=== PATIENT | female | born 1960 | race Caucasian/White ===

== ENCOUNTER 2021-12-28 08:52 | Emergency (ER) | payer OTHER ==
[~2021-12-28] VITALS: Ht 154.9 cm; Wt 95.0 kg
[2021-12-28 08:55] VITALS: BP 148/94
--- NOTE | 2021-12-28 09:07 | NUR ---
EKG AT TRIAGE ROOM.
--- NOTE | 2021-12-28 09:45 | NUR ---
CALLED PT. PT STATED SHE IS AT HOME. SHE WILL COME BACK.
--- NOTE | 2021-12-28 09:45 | NUR ---
PATIENT LEFT WITHOUT BEING SEEN BY DR. BAKER. NO FURTHER CARE PROVIDED FOR PATIENT.
== END 2021-12-28 09:45 | disposition left against medical advice (07) ==
LOC: MED 08:52
DX: R00.0 Tachycardia, unspecified (principal); Z53.21 Procedure and treatment not carried out due to patient leaving prior to being seen by health care provider
CPT/HCPCS: 71045; 93005

== ENCOUNTER 2021-12-28 10:18 | Inpatient (IN) | payer OTHER ==
[~2021-12-28] VITALS: Ht 154.9 cm; Wt 70.3 kg
[2021-12-28 10:26] VITALS: BP 140/96
--- NOTE | 2021-12-28 10:30 | NUR ---
PT ATTEMPTED TO URINATE, NO URINE NOTED
--- NOTE | 2021-12-28 10:33 | NUR ---
PT AMB TO BED 8.
--- NOTE | 2021-12-28 10:43 | NUR ---
DR BAKER AT BEDSIDE EVALUATING PT
[2021-12-28] MEDS ORDERED: DILTIAZEM 25 MG/5 ML VIAL IVP ONE ×3 (10:50→12:20)
--- NOTE | 2021-12-28 11:00 | NUR ---
61 Y/O FEMALE BIB SELF C/O COUGH X 1 MONTH ,LEFT UPPER AND LOWER ABD PAIN AND NAUSEA X5DAYS. NAUSEA, DENIES ANY VOMITING DIARRHEA, DENIES ANY SOB. HR ELEVATED 150-180S, CHANGED INTO A GOWN, PLACED ON FRONT END SPECIALIST. A/OX4, DENIES ANY DIZZINESS, VISION CHANGES PMH: HTN NKA
[2021-12-28] MEDS ORDERED: NACL 0.9% 500 ML IV ONE (11:05)
[2021-12-28 11:07] LABS: BASOPHILS % (AUTO) 0.7 % (0.0-2.0); HEMATOCRIT 38.5 % (36-48); HEMOGLOBIN 11.9 g/dL (12.0-16.0); LYMPHOCYTES # (AUTO) 1.3 K/uL (2.5-16.5); LYMPHOCYTES % (AUTO) 32.2 % (20.5-51.1); MEAN CORPUSCULAR HEMOGLOBIN 21 pg (27-31); MEAN CORPUSCULAR HGB CONC 31 g/dL (33-37); MEAN CORPUSCULAR VOLUME 66.9 fL (80-94); MONOCYTES # (AUTO) 0.7 K/uL (0.8-1.0); MONOCYTES % (AUTO) 18.2 % (1.7-9.3); NEUTROPHILS # (AUTO) 1.9 K/uL (1.8-7.7); NEUTROPHILS % (AUTO) 47.9 % (42.2-75.2); PLATELET COUNT (AUTO) 182 K/uL (140-450); RED BLOOD CELL COUNT(AUTO) 5.76 MIL/uL (4.20-5.40); WHITE BLOOD COUNT (AUTO) 4.1 K/uL (4.8-10.8)
--- NOTE | 2021-12-28 11:10 | NUR ---
DR PALACIO MADE AWARE OF HR 150-170S DESPITE GIVEN CARDIZEM, ORDERS RECEIVED
[2021-12-28 11:21] LABS: ALBUMIN 2.7 g/dL (3.4-5.0); ANION GAP 11.4 (8-16); CARBON DIOXIDE 28.6 mmol/L (21-32); CREATININE 0.4 mg/dL (0.6-1.3); PROTHROMBIN TIME 16.2 secs (10.8-13.4); TOTAL BILIRUBIN 3.9 mg/dL (0.0-1.0)
[2021-12-28 11:31] LABS: THYROID STIMULATING HORMONE < 0.01 uIU/mL (0.34-3.74)
--- NOTE | 2021-12-28 11:44 | NUR ---
SWABS HANDED TO DELPHINE
--- NOTE | 2021-12-28 12:14 | NUR ---
DR BAKER MADE AWARE OF PT HR NOW 150-160S WITH DILTIAZEM
--- NOTE | 2021-12-28 12:14 | NUR ---
PT AMBULATED WITH STEADY GAIT TO THE RESTROOM.
--- NOTE | 2021-12-28 12:38 | NUR ---
URINE HANDED TO DELPHINE TANK CHARGER
[2021-12-28 12:49] LABS: APPEARANCE,URINE SL CLOUDY (CLEAR); BILIRUBIN,URINE 2+ (NEGATIVE); BLOOD, URINE NEGATIVE (NEGATIVE); COLOR,URINE YELLOW (YELLOW); LEUKOCYTE ESTERASE ,URINE TRACE (NEGATIVE); NITRITE, URINE NEGATIVE (NEGATIVE); UGLUCOSE NEGATIVE (NEGATIVE)
[2021-12-28 13:18] LABS: RBC,URINE 0-5 /HPF (0-5); WBC,URINE 0-5 /HPF (0-5)
[2021-12-28] MEDS ORDERED: METOPROLOL 5 MG/5 ML VIAL IVP ONE (13:20)
[2021-12-28 13:43] LABS: BARBITURATE, URINE NEGATIVE ng/ml (NEG <=200); BENZODIAZEPINE, URINE NEGATIVE ng/mL (NEG <=200); CANNABINOID, URINE NEGATIVE ng/mL (NEG <=50); COCAINE, URINE NEGATIVE ng/mL (NEG <=300); OPIATE, URINE NEGATIVE ng/mL (NEG <=2000); PHENCYCLIDINE SCREEN,URINE NEGATIVE ng/mL (NEG <=25)
[2021-12-28] MEDS ORDERED: POTASSIUM CHLORIDE 10 MEQ TABER PO ONE (13:50)
[2021-12-28] MEDS ORDERED: ASPIRIN 81 MG TAB.CHEW PO ONE (13:50)
[2021-12-28] MEDS ORDERED: MAGNESIUM OXIDE 400 MG TAB PO ONE (13:50)
--- NOTE | 2021-12-28 13:59 | NUR ---
US AT BEDSIDE
[2021-12-28] MEDS ORDERED: ONDANSETRON 4 MG/2 ML VIAL IVP PRN (14:10)
[2021-12-28] MEDS ORDERED: ACETAMINOPHEN 325 MG TAB PO PRN (14:10)
[2021-12-28] MEDS ORDERED: MORPHINE SULFATE 4 MG/ML SYR IVP PRN (14:10)
[2021-12-28] MEDS ORDERED: MAGNESIUM OXIDE 400 MG TAB PO PRN (14:10)
[2021-12-28] MEDS ORDERED: HYDROcodone/APAP 5/325 MG 1 TAB TAB PO PRN (14:10)
[2021-12-28 15:55] VITALS: BP 116/87
--- NOTE | 2021-12-28 15:55 | NUR ---
PATIENT WHEELED BY 2 STAFF FROM ER PATIENT ON A GURNEY. ER NURSE JEYSON GAVE BED SIDE REPORT FOR CONTINUITY OF CARE. PATIENT AWAKE VERBALLY RESPONSIVE. AMBULATE FROM GURNEY TO HER BED. RESPIRATION EVEN AND NOT LABORED NO SHORTNESS OF BREATH ON ROOM AIR. IV SITE ON RIGHT AC DIANDRA 20 SALINE LOCK. ORIENTED TO ROOM, BATHROOM, TV, CALL LIGHT.
--- NOTE | 2021-12-28 16:04 | NUR ---
Patient will be admitted to care of CHELO LAGOS. Admited to TELEMETRY. Will go to room 119B. Belongings list completed. Report to MERYL CASAREZ.
[2021-12-28] MEDS: POTASSIUM CHLORIDE 10 MEQ TABER PO PRN (17:27)
--- NOTE | 2021-12-28 17:27 | NUR ---
NOTED POTASSIUM LEVEL IS 3.0 GIVEN KDUR TOLERATED WELL.
--- NOTE | 2021-12-28 19:41 | NUR ---
GAVE REPORT TO COMMERCIAL CREDIT ANALYST NURSE FOR CONTINUITY OF CARE. PATIENT DENIES PAIN AND REPORTED SHE IS URINATING.
--- NOTE | 2021-12-28 19:42 | NUR ---
RECEIVED PT FROM MORNING SHIFT NURSE. PT IS AMBULATORY, AOX4, ABLE TO FOLLOW COMMANDS, CZECH SPEAKING AND ABLE TO VERBALIZE NEEDS. PATIENT IS ON ROOM AIR, CARDIAC DIET AND HAS SALINE LOCK ON RIGHT AC GAUGE 20. ALL SAFETY MEASURES IMPLEMENTED. WHEELS OF BED LOCKED AND BED ON LOW POSITION. CALL LIGHT WITHIN REACH.
[2021-12-28 20:00] VITALS: BP 124/87
[2021-12-28] MEDS ORDERED: METOPROLOL 25 MG TAB PO ONE (21:00)
--- NOTE | 2021-12-28 21:02 | NUR ---
SCHEDULED MEDICATION WAS GIVEN TO PT PER MD ORDER. PT TOLERATE IT WELL. ALL SAFETY MEASURES IMPLEMENTED. BED WHEELS LOCKED, BED IN LOW POSITION AND CALL LIGHT WITHIN REACH.
[2021-12-29] VITALS: BP 134/96
--- NOTE | 2021-12-29 | NUR ---
PT IS ON SLEEP. CHEST RISE AND FALL SYMMETRICALLY NOTED SATING AT 97% WITH UNCONTROLLED A. FIB RHYTHM. ALL SAFETY MEASURES IMPLEMENTED. BED IN LOW POSITION, BED WHEELS LOCKED AND CALL LIGHT WITHIN REACH.
--- NOTE | 2021-12-29 02:00 | NUR ---
PT STILL ON SLEEP. CHEST RISE AND FALL SYMMETRICALLY NOTED SATING AT 98%. ALL SAFETY MEASURES IMPLEMENTED. BED IN LOW POSITION, BED WHEELS LOCKED AND CALL LIGHT WITHIN REACH.
[2021-12-29 04:00] VITALS: BP 108/71
--- NOTE | 2021-12-29 04:00 | NUR ---
PT TELE MONITOR IS ATTACHED BECAUSE IT WAS DETACHED. PT VS ARE BP-108/71 T-97.9 P-104 RR-20 SATING AT 97%. NO COMPLAIN OF PAIN DISCOMFORT NOTED. ALL SAFETY MEASURES IMPLEMENTED. CALL LIGHT WITHIN REACH.
[2021-12-29 06:34] LABS: BASOPHILS % (AUTO) 0.5 % (0.0-2.0); EOSINOPHILS # (AUTO) 0.1 K/uL (0-0.4); EOSINOPHILS % (AUTO) 2.5 % (0.0-4.0); HEMATOCRIT 36.5 % (36-48); HEMOGLOBIN 11.3 g/dL (12.0-16.0); LYMPHOCYTES # (AUTO) 1.4 K/uL (2.5-16.5); LYMPHOCYTES % (AUTO) 33.4 % (20.5-51.1); MEAN CORPUSCULAR HEMOGLOBIN 20 pg (27-31); MEAN CORPUSCULAR HGB CONC 31 g/dL (33-37); MEAN CORPUSCULAR VOLUME 66.1 fL (80-94); MONOCYTES # (AUTO) 0.8 K/uL (0.8-1.0); MONOCYTES % (AUTO) 19.9 % (1.7-9.3); NEUTROPHILS # (AUTO) 1.8 K/uL (1.8-7.7); NEUTROPHILS % (AUTO) 43.7 % (42.2-75.2); PLATELET COUNT (AUTO) 153 K/uL (140-450); RED BLOOD CELL COUNT(AUTO) 5.52 MIL/uL (4.20-5.40); RED CELL DISTRIBUTION WIDTH 19.4 % (11.6-13.7); WHITE BLOOD COUNT (AUTO) 4.1 K/uL (4.8-10.8)
--- NOTE | 2021-12-29 06:57 | NUR ---
NOTIFIED DR. MIRANDA REGARDING PT PULSE RUNNING AT 140'S-150. WAITING FOR REPLY.
--- NOTE | 2021-12-29 07:30 | NUR ---
PT IS STABLE. ENDORSED PT TO MORNING SHIFT NURSE FOR CONTINUITY OF CARE.
[2021-12-29 08:00] VITALS: BP_SYST 121; BP_SYST 155; BP_DIAS 77
[2021-12-29] MEDS ORDERED: DIGOXIN 0.25 MG/ML AMP IV ONE (08:05)
--- NOTE | 2021-12-29 08:11 | NUR ---
GOT REPORT FROM THE NIGHT NURSE PT SLEEPING NO SOB [email or web address]
--- NOTE | 2021-12-29 08:12 | NUR ---
OVERRIDE DIAXON AND PUSHED ORDERED.[id number]
[2021-12-29] MEDS ORDERED: DIGOXIN 0.25 MG/ML AMP IV SCH (08:30)
[2021-12-29 09:34] LABS: ALBUMIN 2.5 g/dL (3.4-5.0); ANION GAP 8.3 (8-16); CREATININE 0.3 mg/dL (0.6-1.3); MAGNESIUM 1.4 mg/dL (1.8-2.4); POTASSIUM 3.3 mmol/L (3.5-5.1); TOTAL BILIRUBIN 3.9 mg/dL (0.0-1.0)
[2021-12-29] MEDS: FUROSEMIDE 40 MG/4 ML VIAL IVP SCH (11:07)
[2021-12-29 12:00] VITALS: BP 128/55
[2021-12-29] MEDS: POTASSIUM CHLORIDE 10 MEQ TABER PO PRN (13:45)
--- NOTE | 2021-12-29 13:55 | NUR ---
PATIENT HAS BEEN SCREENED AND CATEGORIZED MODERATE NUTRITION RISK. PATIENT WILL BE SEEN WITHIN 3-5 DAYS OF ADMISSION. / [address]
[2021-12-29 16:00] VITALS: BP 126/52
[2021-12-29] MEDS: methIMAzole 5 MG TAB PO SCH ×2 (17:20→20:15)
[2021-12-29] MEDS: PROPRANOLOL 20 MG TAB PO SCH ×2 (17:20→20:14)
[2021-12-29] MEDS ORDERED: MAG SULF 2000 MG/WATER PREMIX 50 ML IV SCH (17:26)
[2021-12-29] MEDS ORDERED: DIGOXIN 0.25 MG TAB PO SCH (17:27)
[2021-12-29] MEDS ORDERED: POTASSIUM CHLORIDE 10 MEQ TABER PO SCH (17:30)
--- NOTE | 2021-12-29 19:15 | NUR ---
RECEIVED PT FROM MORNING SHIFT NURSE. PT IS AMBULATORY, A0X4, ABLE TO FOLLOW COMMANDS AND CAN VERBALIZE NEEDS. PT HAS IV ON LEFT AC G24 RUNNING WITH MAGNESIUM AT 25ML/HR. NO COMPLAIN OF PAIN THIS TIME. ALL SAFETY MEASURES IMPLEMENTED. WHEELS OF BED LOCKED AND BED ON LOW POSITION. CALL LIGHT WITHIN REACH.
[2021-12-29 20:00] VITALS: BP 109/72
[2021-12-30] VITALS: BP 114/78
[2021-12-30] MEDS ORDERED: DIGOXIN 0.25 MG TAB PO SCH
--- NOTE | 2021-12-30 02:00 | NUR ---
PT IS ON SLEEP. CHEST RISE AND FALL SYMMETRICALLY NOTED SATING AT 97%. ALL SAFETY MEASURES IMPLEMENTED AND CALL LIGHT WITHIN REACH.
[2021-12-30 04:00] VITALS: BP 124/67
[2021-12-30] MEDS: PROPRANOLOL 20 MG TAB PO SCH ×3 (04:28→21:02)
[2021-12-30] MEDS: methIMAzole 5 MG TAB PO SCH ×3 (04:28→21:01)
--- NOTE | 2021-12-30 07:10 | NUR ---
RECEIVED REPORT FROM THE NIGHT NURSE PT IS SLEEPING WITHOUT SOB OR DISCOMFORT.[id number]
--- NOTE | 2021-12-30 07:10 | NUR ---
PT IS STABLE. ENDORSED PT TO MORNING SHIFT NURSE FOR CONTINUITY CARE.
[2021-12-30 07:12] LABS: HEMATOCRIT 36.8 % (36-48); HEMOGLOBIN 11.5 g/dL (12.0-16.0); MEAN CORPUSCULAR HEMOGLOBIN 21 pg (27-31); MEAN CORPUSCULAR HGB CONC 31 g/dL (33-37); MEAN CORPUSCULAR VOLUME 66.5 fL (80-94); PLATELET COUNT (AUTO) 165 K/uL (140-450); RED BLOOD CELL COUNT(AUTO) 5.53 MIL/uL (4.20-5.40); RED CELL DISTRIBUTION WIDTH 18.9 % (11.6-13.7); WHITE BLOOD COUNT (AUTO) 6.1 K/uL (4.8-10.8)
[2021-12-30 08:00] VITALS: BP 114/74
[2021-12-30 09:06] LABS: LYMPHOCYTES % (MANUAL) 18 % (20-46); MONOCYTES % (MANUAL) 19 % (5-12)
[2021-12-30] MEDS: FUROSEMIDE 40 MG/4 ML VIAL IVP SCH (09:11)
[2021-12-30] MEDS: RIVAROXABAN 10 MG TAB PO SCH (09:12)
[2021-12-30 12:00] VITALS: BP 105/57
[2021-12-30 12:20] LABS: ALBUMIN 2.5 g/dL (3.4-5.0); ANION GAP 10.3 (8-16); CARBON DIOXIDE 27.7 mmol/L (21-32); CREATININE 0.3 mg/dL (0.6-1.3); TOTAL BILIRUBIN 4.7 mg/dL (0.0-1.0)
[2021-12-30 14:23] LABS: MAGNESIUM 1.5 mg/dL (1.8-2.4)
[2021-12-30 16:00] VITALS: BP 113/72
--- NOTE | 2021-12-30 16:05 | NUR ---
TRIED TO INSERT IV BUT NO SUCCESS, TRIED TWO TIMES.[id number]
[2021-12-30] MEDS ORDERED: MAG SULF 2000 MG/WATER PREMIX 50 ML IV SCH (17:26)
--- NOTE | 2021-12-30 19:45 | NUR ---
RECEIVED BEDSIDE REPORT FROM DAY SHIFT NURSE. PATIENT IS AWAKE, ALERT, AND COOPERATIVE. RESPIRATION EVEN UNLABORED ON ROOM AIR. NO DISTRESS NOTED. SKIN IS WARM AND DRY. IV PATENT AND INTACT MAGNESIUM IV IS RUNNING AT THIS TIME. PLAN OF CARE DISCUSSED. ALL SAFETY MEASURES IN PLACE. BED IS AT LOW POSITION CALL LIGHT WITHIN REACH WILL CONTINUE TO MONITOR
[2021-12-30 20:00] VITALS: BP 120/78
--- NOTE | 2021-12-30 20:00 | NUR ---
VITALS WERE TAKEN. INITIAL ASSESSMENT DONE
--- NOTE | 2021-12-30 21:10 | NUR ---
ALL SCHEDULED MEDS WERE GIVEN PER ORDER. WILL CONTINUE TO MONITOR
[2021-12-31] VITALS: BP 114/65
--- NOTE | 2021-12-31 00:15 | NUR ---
VITALS WERE TAKEN, PATIENT COMPLAINED OF PAIN IN HER IV SITE. ASSESSED IV SITE, REDNESS NOTED. PRN PAIN MEDS GIVEN PER ORDER WILL CONTINUE TO MONITOR.
--- NOTE | 2021-12-31 02:14 | NUR ---
MADE ROUNDS. PATIENT SLEEPING RESPIRATION EVEN UNLABORED.
[2021-12-31 04:00] VITALS: BP 107/57
--- NOTE | 2021-12-31 04:15 | NUR ---
VITALS WERE TAKEN.
[2021-12-31] MEDS: methIMAzole 5 MG TAB PO SCH (05:13)
[2021-12-31] MEDS: PROPRANOLOL 20 MG TAB PO SCH (05:14)
--- NOTE | 2021-12-31 05:53 | NUR ---
AM CARE PROVIDED
[2021-12-31 06:05] LABS: BASOPHILS % (AUTO) 0.4 % (0.0-2.0); EOSINOPHILS # (AUTO) 0.1 K/uL (0-0.4); HEMATOCRIT 37.5 % (36-48); HEMOGLOBIN 11.7 g/dL (12.0-16.0); LYMPHOCYTES # (AUTO) 1.7 K/uL (2.5-16.5); MEAN CORPUSCULAR HEMOGLOBIN 21 pg (27-31); MEAN CORPUSCULAR HGB CONC 31 g/dL (33-37); MEAN CORPUSCULAR VOLUME 66.4 fL (80-94); MONOCYTES # (AUTO) 1.1 K/uL (0.8-1.0); MONOCYTES % (AUTO) 16.9 % (1.7-9.3); NEUTROPHILS # (AUTO) 3.3 K/uL (1.8-7.7); NEUTROPHILS % (AUTO) 52.7 % (42.2-75.2); PLATELET COUNT (AUTO) 158 K/uL (140-450); RED BLOOD CELL COUNT(AUTO) 5.65 MIL/uL (4.20-5.40); RED CELL DISTRIBUTION WIDTH 19.5 % (11.6-13.7); WHITE BLOOD COUNT (AUTO) 6.2 K/uL (4.8-10.8)
[2021-12-31 06:20] LABS: ALBUMIN 2.3 g/dL (3.4-5.0); ANION GAP 10.8 (8-16); CARBON DIOXIDE 28.7 mmol/L (21-32); CREATININE 0.4 mg/dL (0.6-1.3); MAGNESIUM 1.8 mg/dL (1.8-2.4); POTASSIUM 3.5 mmol/L (3.5-5.1); TOTAL BILIRUBIN 4.1 mg/dL (0.0-1.0)
--- NOTE | 2021-12-31 07:26 | NUR ---
ENDORSED PATIENT TO DAY SHIFT NURSE FOR CONTINUITY OF CARE
--- NOTE | 2021-12-31 07:30 | NUR ---
RECEIVED BEDSIDE REPORT FROM MORTGAGE PROCESSING MANAGER NURSE FOR CONTINUOUS OF CARE, PT RESTING, NO DISTRESS NOTED, IV TO LEFT FA 24G PATENT INTACT, SL. PT ON ROOM AIR, NO SOB NOTED, INITIAL ASSESSMENT DONE, ALL SAFETY PRECAUTION MET, CALL LIGHT WITHIN REACH, WILL CONTINUE TO MONITOR.
[2021-12-31 08:00] VITALS: BP 125/86
[2021-12-31] MEDS: FUROSEMIDE 40 MG/4 ML VIAL IVP SCH (08:54)
--- NOTE | 2021-12-31 08:54 | NUR ---
DUE MEDICATIONS ADMINISTERED, PT TOLERATED WELL, WILL CONTINUE TO MONITOR.
[2021-12-31] MEDS: RIVAROXABAN 10 MG TAB PO SCH (09:03)
[2021-12-31] MEDS ORDERED: TAP5 PO (09:52)
[2021-12-31] MEDS ORDERED: PROP20TA29 PO (09:52)
[2021-12-31] MEDS ORDERED: XAR10 PO (09:52)
[2021-12-31 12:00] VITALS: BP 103/75
--- NOTE | 2021-12-31 12:39 | NUR ---
DISCHARGE INSTRUCTION GIVEN TO PT VIA [employer] INTREPRETER NUMBER [id number] DEVORAH PT STATED UNDERSTANDING, ALL QUESTIONS, ANSWERED, IV TAKEN OUT.
== END 2021-12-31 12:45 | disposition home or self-care (01) | DRG 194 ==
LOC: MED 10:18 → EDBEDREQTM 13:24 → MTU 14:08 → MMU 12-30 13:00
PROVIDERS: ADMIT Student in an Organized Health Care Education/Training Program; ATTEND Student in an Organized Health Care Education/Training Program
DX: I11.0 Hypertensive heart disease with heart failure (principal); E43 Unspecified severe protein-calorie malnutrition; E86.1 Hypovolemia; I48.20 Chronic atrial fibrillation, unspecified; E05.90 Thyrotoxicosis, unspecified without thyrotoxic crisis or storm; E66.9 Obesity, unspecified; E83.42 Hypomagnesemia; I50.31 Acute diastolic (congestive) heart failure; E87.6 Hypokalemia; Z20.822 Contact with and (suspected) exposure to COVID-19; Z90.710 Acquired absence of both cervix and uterus; Z68.29 Body mass index [BMI] 29.0-29.9, adult
CPT/HCPCS: 36415; 71045; 76705; 80053; 80305; 81001; 83735; 83880; 84439; 84443; 84479; 84484; 85025; 85610; 85730; 87081; 87086; 93005; 96361; 96374; 96375; 96376; 99291; J1160; J1644; J1940; J2270; J3475; J3490; Q0092

== ENCOUNTER 2022-02-28 19:15 | Emergency (ER) | payer OTHER ==
[~2022-02-28] VITALS: Ht 154.9 cm; Wt 82.6 kg
[~2022-02-28 19:15] MED LIST: DIGO-81 PO; FURO-570 PO; PROP20TA29 PO; TAP5 PO; XAR10 PO
[2022-02-28 19:47] VITALS: BP 111/76
--- NOTE | 2022-02-28 20:08 | NUR ---
PT TAKEN TO BED 11
--- NOTE | 2022-02-28 21:27 | NUR ---
Dr. Garrison examining patient.
--- NOTE | 2022-02-28 21:53 | NUR ---
d/c with VSS. d/c education given. opportunity to ask questions given and answered. no rx given.
[2022-02-28 21:54] VITALS: BP 132/69
== END 2022-02-28 21:53 | disposition home or self-care (01) ==
LOC: MED 19:15
DX: R04.0 Epistaxis (principal); E11.9 Type 2 diabetes mellitus without complications; I10 Essential (primary) hypertension; E07.9 Disorder of thyroid, unspecified; Z79.899 Other long term (current) drug therapy; Z98.890 Other specified postprocedural states
CPT/HCPCS: 81002; 99282

== ENCOUNTER 2024-03-29 17:07 | Emergency (ER) | payer OTHER ==
[~2024-03-29] VITALS: Ht 154.9 cm; Wt 98.9 kg
[2024-03-29 17:17] VITALS: BP 137/82; PULSE 86; RESP 20; TEMP 98.7; O2SAT 98
[2024-03-29 17:30] VITALS: O2SAT 98
[2024-03-29 19:18] LABS: FLU A ANTIGEN negative (NEGATIVE); FLU B ANTIGEN negative (NEGATIVE)
[2024-03-29 20:49] LABS: ANION GAP 10.1 (8-16); CALCIUM 8.7 mg/dL (8.5-10.1); CARBON DIOXIDE 30.9 mmol/L (21-32); CREATININE 0.7 mg/dL (0.6-1.3)
[2024-03-29 20:53] LABS: BASOPHILS % (AUTO) 0.8 % (0.0-2.0); EOSINOPHILS # (AUTO) 0.2 K/uL (0-0.4); EOSINOPHILS % (AUTO) 4.6 % (0.0-4.0); HEMATOCRIT 45.4 % (36-48); HEMOGLOBIN 14.5 g/dL (12.0-16.0); LYMPHOCYTES # (AUTO) 2.1 K/uL (2.5-16.5); LYMPHOCYTES % (AUTO) 46.6 % (20.5-51.1); MEAN CORPUSCULAR HEMOGLOBIN 24 pg (27-31); MEAN CORPUSCULAR HGB CONC 32 g/dL (33-37); MEAN CORPUSCULAR VOLUME 74.8 fL (80-94); MONOCYTES # (AUTO) 0.6 K/uL (0.8-1.0); MONOCYTES % (AUTO) 13.7 % (1.7-9.3); NEUTROPHILS # (AUTO) 1.5 K/uL (1.8-7.7); NEUTROPHILS % (AUTO) 34.3 % (42.2-75.2); PLATELET COUNT (AUTO) 151 K/uL (140-450); RED BLOOD CELL COUNT(AUTO) 6.07 MIL/uL (4.20-5.40); RED CELL DISTRIBUTION WIDTH 16.7 % (11.6-13.7); WHITE BLOOD COUNT (AUTO) 4.4 K/uL (4.8-10.8)
[2024-03-29 21:01] LABS: BILIRUBIN,DIRECT 0.3 mg/dL (0.0-0.3); TOTAL BILIRUBIN 1.5 mg/dL (0.0-1.0); TOTAL PROTEIN, SERUM 6.9 g/dL (6.4-8.2)
[2024-03-29 21:42] LABS: BILIRUBIN,URINE 2+ (NEGATIVE); BLOOD, URINE NEGATIVE (NEGATIVE); COLOR,URINE YELLOW (YELLOW); LEUKOCYTE ESTERASE ,URINE NEGATIVE (NEGATIVE); NITRITE, URINE NEGATIVE (NEGATIVE); PROTEIN,URINE 1+ (NEGATIVE); UGLUCOSE NEGATIVE (NEGATIVE); UROBILINOGEN,URINE 0.2 EU/dL (0.2 - 1)
[2024-03-29 21:46] LABS: APPEARANCE,URINE SLIGHTLY HAZY (CLEAR)
[2024-03-29 21:52] LABS: BACTERIA,URINE 1+ /HPF (None Seen); ICTOTEST POSITIVE (NEGATIVE); MUCUS,URINE 1+ /LPF (None Seen); RBC,URINE 0 /HPF (0-5); SQUAMOUS EPITHELIAL CELL,UR 4-10 (MOD) /LPF (0-3 (FEW)); WBC,URINE 0-5 /HPF (0-5)
[2024-03-29 23:04] VITALS: BP 126/70; PULSE 88; RESP 11; TEMP 98; O2SAT 98
== END 2024-03-29 23:05 | disposition home or self-care (01) ==
LOC: MED 17:07
DX: B34.9 Viral infection, unspecified (principal); Z20.822 Contact with and (suspected) exposure to COVID-19; I11.0 Hypertensive heart disease with heart failure; I50.9 Heart failure, unspecified; I48.91 Unspecified atrial fibrillation; E05.90 Thyrotoxicosis, unspecified without thyrotoxic crisis or storm; E11.9 Type 2 diabetes mellitus without complications; Z79.899 Other long term (current) drug therapy; Z79.01 Long term (current) use of anticoagulants
CPT/HCPCS: 36415; 71045; 80048; 80076; 81001; 83880; 85025; 87040; 87426; 87804; 93005; 99285; Q0092